=== PATIENT | female | born 1995 | race Caucasian/White ===

== ENCOUNTER → 2018-04-10 | Outpatient (CLI) | payer OTHER ==
[~2018-04-10] MED LIST: SINCALIDE 3 MCG/VIAL INJ ONE
--- NOTE | 2018-04-10 11:38 | Diagnostic Imaging Report ---
Abdominal ultrasound dated 04/10/2018. History: Pain. Comparison: <None available>. Discussion: Transverse and longitudinal images of the abdomen were obtained demonstrating a liver of normal size and echogenicity measuring 14.9 cm in length. The portal vein is patent with hepatopetal flow and is within normal limits measuring 12 mm in diameter. The biliary tree is within normal limits with the common bile duct measuring 3 mm in diameter. The gallbladder is normal without evidence of stones, wall thickening or pericholecystic fluid. The sonographic Fuller's sign was negative. The kidneys are normal in size and echogenicity bilaterally without evidence of hydronephrosis, stones, or mass. The right kidney measures 11.3 x 3.9 x 3.4 cm and the left kidney measures 10.6 x 4.3 x 4.7 cm. Echogenic foci in the medial aspect of the left kidney suggestive of nonobstructing renal stone measures 1.2 cm. The spleen is normal in size and appearance measuring 9.2 cm in length. The pancreas is normal in appearance. The abdominal aorta is within normal limits. The inferior vena cava is patent. There is no evidence of free fluid. IMPRESSION: 1. No acute abnormality within the abdomen. 2. Echogenic foci within the medial aspect of the left kidney c/w a renal stone. Signed by: Dr. Enrike Carreon DO on 04/10/2018 11:35 AM
--- NOTE | 2018-04-10 19:38 | Diagnostic Imaging Report ---
Hepatobiliary Scan with Gallbladder Ejection Fraction Clinical information: 22 F with RUQ abdominal pain, usually postprandial. Report: Following intravenous administration of 7 millicuries of Tc-99m mebrofenin, dynamic images of the abdomen in the anterior projection were obtained through 45 minutes. Sincalide (CCK analog) 1.6 micrograms was administered intravenously over 30 minutes with additional imaging for determination of gallbladder ejection fraction. Perfusion to the liver is normal. Extraction of tracer from the blood pool by the liver parenchyma is normal. Tracer is seen promptly within the biliary tract. The gallbladder begins to fill by 42 minutes post-injection of tracer and fills adequately. Tracer is seen in the small bowel by 18 minutes. The gallbladder ejection fraction with administration of sincalide is 88% (normal greater than 40%). Impression: 1. Filling of the gallbladder excludes the diagnosis of acute cystic duct obstruction/acute cholecystitis. 2. Normal gallbladder ejection fraction of 88% does not support the clinical diagnosis of chronic cholecystitis/gallbladder dyskinesia. Signed by: Dr. Cristina Huffman M.D. on 04/10/2018 7:34 PM
== END ==
LOC: US 09:36
PROVIDERS: ATTEND Internal Medicine Gastroenterology
DX: R10.11 Right upper quadrant pain (principal)
CPT/HCPCS: 76700; 78227; 81025; A9537; J2805